=== PATIENT | male | born 1990 | race Caucasian/White ===

== ENCOUNTER → 2020-08-04 | Outpatient (CLI) | payer MEDICARE, OTHER | LOC: HEART CORB 13:56 | DX: I42.8 Other cardiomyopathies (principal); R93.1 Abnormal findings on diagnostic imaging of heart and coronary circulation; I07.1 Rheumatic tricuspid insufficiency ==

== ENCOUNTER → 2021-03-05 | Outpatient (CLI) | payer MEDICARE, OTHER | LOC: HEART CORB 12:24 | DX: I50.812 Chronic right heart failure (principal); I42.0 Dilated cardiomyopathy; I51.89 Other ill-defined heart diseases; I51.7 Cardiomegaly; Z95.0 Presence of cardiac pacemaker ==